=== PATIENT | male | born 1950 | race Caucasian/White ===

== ENCOUNTER → 2019-05-16 | Outpatient (CLI) | payer MEDICARE ==
--- NOTE | 2019-05-16 10:25 | Diagnostic Imaging Report ---
Indication: Low back pain with right sciatica Lumbar spine AP and lateral views of the lumbar spine were obtained. There is spondylosis with anterior osteophytes forming from T10 through L4. There is a possible hemangioma in the L2 vertebral body. There are no appreciable compression fractures. Intervertebral disc spaces are well-maintained. IMPRESSION: Spondylosis deformans. No acute abnormality seen. Dictated by: Dictated on workstation # [id number]
== END ==
LOC: RAD FS 10:10
PROVIDERS: ATTEND Nurse Practitioner Family
DX: M47.816 Spondylosis without myelopathy or radiculopathy, lumbar region (principal)
CPT/HCPCS: 72100

== ENCOUNTER → 2019-07-19 | Outpatient (CLI) | payer MEDICARE ==
--- NOTE | 2019-07-19 11:35 | Diagnostic Imaging Report ---
PA and lateral chest at 1111 hours. INDICATION: Cough. There are no prior studies available for comparison. FINDINGS: The heart size is within normal limits. There is a small band of increased density near the apex of the heart and I suspect this is more likely due to minimal atelectasis/scar formation than to an acute abnormality. If previous studies are available, they would be helpful for comparison. The lungs are otherwise generally clear. There is no evidence for failure, pneumonia or for pleural effusion. The mediastinum is not widened. The osseous structures are intact. IMPRESSION: 1. The small band of increased density near the apex of the heart is most likely due to chronic atelectasis/scar formation. There is no acute cardiopulmonary abnormality noted. 2. If previous exams are available, they would be helpful for comparison. Dictated by: Dictated on workstation # [id number]
== END ==
LOC: RAD FS 11:05
PROVIDERS: ATTEND Nurse Practitioner Family
DX: R05 Cough (principal)
CPT/HCPCS: 71046

== ENCOUNTER → 2019-08-06 | Outpatient (CLI) | payer MEDICARE ==
--- NOTE | 2019-08-06 11:19 | Diagnostic Imaging Report ---
PATIENT HISTORY: BRONCHITIS. TECHNIQUE: Two views of the chest. COMPARISON: 07/19/2019 FINDINGS: The lung volumes are normal. No focal consolidation is seen. No large pleural effusion or pneumothorax is seen. The cardiomediastinal silhouette is normal in size and contour. No acute osseous abnormality is seen. There are marked degenerative changes in the bilateral AC joints. IMPRESSION: No acute pulmonary abnormality seen. Dictated by: Dictated on workstation # [id number]
== END ==
LOC: RAD FS 11:01
PROVIDERS: ATTEND Nurse Practitioner Family
DX: J40 Bronchitis, not specified as acute or chronic (principal)
CPT/HCPCS: 71046

== ENCOUNTER → 2020-03-17 | Outpatient (CLI) | payer MEDICARE ==
[~2020-03-17] MED LIST: RT-ALBUTEROL SULF 2.5 MG/3 ML PRE-MIX VIAL INH ONE
== END ==
LOC: RT 08:00
PROVIDERS: ATTEND Nurse Practitioner Family
DX: J44.9 Chronic obstructive pulmonary disease, unspecified (principal)
CPT/HCPCS: 94060; 94726; 94729

== ENCOUNTER → 2020-03-26 | Outpatient (CLI) | payer MEDICARE ==
--- NOTE | 2020-03-26 10:14 | Diagnostic Imaging Report ---
PROCEDURE: CT chest without contrast. TECHNIQUE: Multiple contiguous axial images were obtained through the chest without the use of intravenous contrast. Auto Exposure Controls were utilized during the CT exam to meet ALARA standards for radiation dose reduction. DATE: March 26, 2020. COMPARISON: Chest radiograph August 06, 2019. INDICATION: 69-year-old male, history of chronic obstructive pulmonary disease. Cough since May 2019. PROCEDURE: Axial noncontrasted CT images of the chest. Noncontrasted limits the evaluation of the mediastinum and vascular structures. FINDINGS: There are patchy areas of peripheral groundglass consolidation in the right upper lobe and left upper lobe. There is a focal somewhat groundglass nodular opacity in the right lower lobe on axial image 103. There is a noncalcified left lower lobe pulmonary nodule measuring 5 mm in size on axial image 112. There is a 3 mm noncalcified left lower lobe pulmonary nodule on axial image 94. There is a 6 mm noncalcified left lower lobe pulmonary nodule on axial image 75. There is a 5 mm noncalcified left lower lobe pulmonary nodule on axial image 69. There is no pneumothorax. There is no pleural effusion. The central airways are patent. The heart is not enlarged. There is no pericardial effusion. There is no identified abnormally enlarged mediastinal or axillary lymph node meeting CT size criteria for adenopathy. There is a low-attenuation lesion in the left lobe of liver on axial image 117 which measures 9 mm in size. There is a 6 mm low-attenuation liver lesion on axial image 114. There are additional subcentimeter liver lesions also present. These are too small to characterize. Additional evaluation of the imaged portions of the upper abdomen is unremarkable. There are multilevel degenerative changes of the spine. There are glenohumeral arthritic changes. There is a benign vertebral body hemangioma at the level of T10. IMPRESSION: 1. Multifocal patchy areas of groundglass consolidation in the peripheral aspects of the right upper lobe and left lower lobe. This may reflect pneumonitis or atypical infection. 2. Several noncalcified left lower lobe pulmonary nodules measuring up to maximally 6 mm in size. Recommend follow-up CT chest in 6 months to evaluate for stability. 3. Subcentimeter liver lesions too small to characterize. Dictated by: Dictated on workstation # [id number]
== END ==
LOC: RAD 09:15
PROVIDERS: ATTEND Nurse Practitioner Family
DX: J44.9 Chronic obstructive pulmonary disease, unspecified (principal); K76.9 Liver disease, unspecified; R91.8 Other nonspecific abnormal finding of lung field
CPT/HCPCS: 71250

== ENCOUNTER → 2021-09-23 | Outpatient (CLI) | payer MEDICARE ==
--- NOTE | 2021-09-23 13:54 | Diagnostic Imaging Report ---
EXAMINATION: CT chest without contrast. TECHNIQUE: Multiple contiguous axial images were obtained through the chest without the use of intravenous contrast. All CT scans use one or more of the following dose optimizing techniques: automated exposure control, MA and/or KvP adjustment based on patient size and exam type or iterative reconstruction. HISTORY: Pulmonary nodule follow-up COMPARISON: 10/26/2020 FINDINGS: Thyroid: The thyroid is normal. Mediastinum: Heart size is normal without significant pericardial effusion. Calcifications of the aorta and coronary vessels. Thoracic aorta is normal in caliber. No suspicious lymphadenopathy. Lungs and airways: Mild areas of reticular nodular opacification and groundglass seen within the lungs. These are new from prior exam. There is a stable left lower lobe pulmonary nodule which measures up to 0.5 cm, unchanged from 10/26/2020. Innumerable reticulonodular opacities seen within the lungs limit evaluation for new pulmonary nodules. No pleural effusion or pneumothorax. The airways are normal. Upper abdomen: The subphrenic structures are normal. Musculoskeletal: Degenerative changes of the spine without suspicious osseous lesion or compression fracture. IMPRESSION: 1. Stable 0.5 cm left lower lobe pulmonary nodule. 2. New scattered areas of groundglass and reticulonodular opacities within the lungs likely secondary to atypical infection. This does limit evaluation for new pulmonary nodules. Recommend follow-up after resolution of symptoms and treatment to exclude other pulmonary nodules. Dictated by: Dictated on workstation # [id number]
== END ==
LOC: RAD 11:06
PROVIDERS: ATTEND Nurse Practitioner Family
DX: R91.8 Other nonspecific abnormal finding of lung field (principal)
CPT/HCPCS: 71250